=== PATIENT | male | born 1945 | race Hispanic/Latino ===

== ENCOUNTER 2021-03-17 05:09 | Inpatient (IN) | payer OTHER ==
[2021-03-17 05:59] LABS: #Eosinphils 0.5 thou/uL (0.0-0.7); #Lymphocytes 0.6 thou/uL (1.20-3.40); #Monocytes 0.9 thou/uL (0.11-0.59); %Basophils 0.2 % (0.0-1.0); %Lymphocytes 6.8 % (21.0-51.0); %Monocytes 9.8 % (0.0-10.0); %Neutrophils 78.1 % (42.0-75.0); Hemoglobin 11.7 g/dL (14.0-18.0); Mean Corpuscular HGB CONC 33.4 g/dL (32.0-36.0); Mean Corpuscular Hemoglobin 29.8 pg (27.0-31.0); Mean Platelet Volume 8.6 fL (7.4-10.4); Platelet Count 200 thou/uL (130-400); RBC Distribution Width 12.4 % (11.5-14.5); Red Blood Cell (RBC) Count 3.93 mill/uL (4.70-6.10)
[2021-03-17 06:25] LABS: ALT (SGPT) 24 U/L (8-55); AST (SGOT) 25 U/L (5-34); Albumin 3.2 g/dL (3.4-4.8); Alkaline Phosphatase 217 U/L (40-110); Anion Gap 12 mmol/L (10-20); BUN (Urea Nitrogen) 41 mg/dL (8.4-25.7); Calc. Creatinine Clearance 0 mL/min (70-130); Calcium 9.1 mg/dL (7.8-10.44); Carbon Dioxide 26 mmol/L (23-31); Chloride 99 mmol/L (98-107); Globulin 3.8 g/dL (2.4-3.5); Glucose 131 mg/dL (83-110); Potassium 3.6 mmol/L (3.5-5.1); Sodium 133 mmol/L (136-145)
[2021-03-17 06:48] LABS: CKMB 1.8 ng/mL (0-6.6)
[2021-03-17 07:38] LABS: Bacteria/HPF None Seen HPF (None Seen); Bilirubin Negative (Negative); Blood, Urine 1+ (Negative); Clarity Clear (Clear); Glucose, Urine (Dipstick) Normal (Negative); Ketone, Urine Negative (Negative); Leukocyte Negative Leu/uL (Negative); Nitrite Negative (Negative); Protein, Urine (Dipstick) 30 mg/dL (Neg-Trace); RBC/HPF 0-3 HPF (0-3); Specific Gravity, Urine 1.026 (1.002-1.036); Squamous Epithelial 0-3 HPF (0-3); Urobilinogen Normal mg/dL (Less than 2); WBC/HPF 0-3 HPF (0-3); pH, Urine 5.5 (5.0-9.0)
[2021-03-17] MEDS ORDERED: Calcium Carbonate 500 MG ChewTAB PO PRN (07:53)
[2021-03-17] MEDS ORDERED: Ondansetron PF 4 MG/2 ML Vial IVP PRN (07:53)
[2021-03-17] MEDS ORDERED: Aspirin 300 MG Suppository ONE (07:58)
[2021-03-17] MEDS: Sodium Chloride 0.9% 1,000 ML IV SCH ×3 (08:52→21:53)
[2021-03-17] MEDS: Aspirin 81 mg Enteric Coated Tablet PO SCH (08:52)
[2021-03-17 09:31] LABS: Anion Gap 13 mmol/L (10-20); Carbon Dioxide 25 mmol/L (23-31); Chloride 102 mmol/L (98-107); Potassium 3.5 mmol/L (3.5-5.1); Sodium 136 mmol/L (136-145)
[2021-03-17 09:39] LABS: Troponin I 0.255 ng/mL (< 0.028)
[2021-03-17] MEDS ORDERED: Haloperidol Lactate 5 MG/ML VIAL ONE ×2 (11:02→16:02)
[2021-03-17] MEDS: Haloperidol Lactate 5 MG/ML VIAL SLOW IVP PRN ×2 (11:18→18:29)
[2021-03-17] MEDS ORDERED: Famotidine 20 MG TAB ONE (11:40)
[2021-03-17] MEDS: Famotidine 20 MG TAB PO SCH (11:45)
[2021-03-17] MEDS ORDERED: Iopamidol-370 76% 500 ML 1 ML ONE (12:44)
[2021-03-17] MEDS ORDERED: Enoxaparin Sodium 60 MG/0.6 ML SYRINGE ONE (14:47)
[2021-03-17] MEDS: Enoxaparin Sodium 60 MG/0.6 ML SYRINGE SC SCH ×2 (14:48→21:52)
[2021-03-17 19:35] LABS: Troponin I 0.194 ng/mL (< 0.028)
[2021-03-17 21:04] LABS: SARS-CoV-2 PCR by NAA Not Detected (NotDetected)
[2021-03-17] MEDS: Atorvastatin Calcium 40 MG TAB PO SCH (21:56)
[2021-03-18] MEDS: Sodium Chloride 0.9% 1,000 ML IV SCH ×3 (03:52→21:43)
[2021-03-18 09:31] LABS: Hemoglobin 11.3 g/dL (14.0-18.0); Mean Corpuscular HGB CONC 34.9 g/dL (32.0-36.0); Mean Corpuscular Hemoglobin 31.3 pg (27.0-31.0); Mean Corpuscular Volume 89.7 fL (78.0-98.0); Mean Platelet Volume 8.5 fL (7.4-10.4); Platelet Count 196 thou/uL (130-400); RBC Distribution Width 12.6 % (11.5-14.5); Red Blood Cell (RBC) Count 3.61 mill/uL (4.70-6.10); White Blood Cell (WBC) Count 7.8 thou/uL (4.8-10.8)
[2021-03-18] MEDS: Enoxaparin Sodium 60 MG/0.6 ML SYRINGE SC SCH ×2 (09:43→21:11)
[2021-03-18] MEDS: Famotidine 20 MG TAB PO SCH (09:43)
[2021-03-18] MEDS: Aspirin 81 mg Enteric Coated Tablet PO SCH (09:43)
[2021-03-18 09:50] LABS: Anion Gap 12 mmol/L (10-20); BUN (Urea Nitrogen) 29 mg/dL (8.4-25.7); Calc. Creatinine Clearance 34 mL/min (70-130); Calcium 8.8 mg/dL (7.8-10.44); Carbon Dioxide 23 mmol/L (23-31); Chloride 107 mmol/L (98-107); Glucose 106 mg/dL (83-110); Potassium 3.7 mmol/L (3.5-5.1); Sodium 138 mmol/L (136-145)
[2021-03-18] MEDS: Acetaminophen 325 MG TAB PO PRN (13:14)
[2021-03-18] MEDS: Atorvastatin Calcium 40 MG TAB PO SCH (21:10)
[2021-03-19] MEDS: Sodium Chloride 0.9% 1,000 ML IV SCH ×3 (02:33→17:07)
[2021-03-19 05:02] LABS: Hemoglobin 10.8 g/dL (14.0-18.0); Mean Corpuscular HGB CONC 35.1 g/dL (32.0-36.0); Mean Corpuscular Hemoglobin 31.3 pg (27.0-31.0); Mean Corpuscular Volume 89.1 fL (78.0-98.0); Mean Platelet Volume 8.2 fL (7.4-10.4); Platelet Count 208 thou/uL (130-400); RBC Distribution Width 12.4 % (11.5-14.5); Red Blood Cell (RBC) Count 3.45 mill/uL (4.70-6.10)
[2021-03-19 05:19] LABS: Anion Gap 11 mmol/L (10-20); BUN (Urea Nitrogen) 17 mg/dL (8.4-25.7); Calc. Creatinine Clearance 48 mL/min (70-130); Calcium 8.5 mg/dL (7.8-10.44); Carbon Dioxide 21 mmol/L (23-31); Chloride 108 mmol/L (98-107); Glucose 107 mg/dL (83-110); Potassium 3.3 mmol/L (3.5-5.1); Sodium 137 mmol/L (136-145)
[2021-03-19] MEDS ORDERED: Potassium Chloride 20 MEQ TAB PO SCH (08:30)
[2021-03-19] MEDS ORDERED: Clopidogrel Bisulfate 75 MG TAB PO SCH (09:00)
[2021-03-19] MEDS: Famotidine 20 MG TAB PO SCH (09:07)
[2021-03-19] MEDS: Aspirin 81 mg Enteric Coated Tablet PO SCH (09:07)
[2021-03-19] MEDS: Senokot S 8.6-50 MG TAB PO SCH ×2 (09:25→21:03)
[2021-03-19] MEDS ORDERED: Losartan 25 MG TAB PO SCH (12:45)
[2021-03-19] MEDS ORDERED: Amlodipine 5 MG TAB PO SCH (12:45)
[2021-03-19] MEDS ORDERED: Sodium Chloride 0.9% 1,000 ML IV SCH (14:27)
[2021-03-19] MEDS ORDERED: Megestrol Acetate 40 MG TAB PO SCH (15:00)
[2021-03-19] MEDS: Acetaminophen 325 MG TAB PO PRN (18:03)
[2021-03-19] MEDS: Atorvastatin Calcium 40 MG TAB PO SCH (21:03)
[2021-03-19] MEDS: Carvedilol 3.125 MG TAB PO SCH (21:03)
[2021-03-20] MEDS: Lorazepam 2 MG/ML VIAL SLOW IVP PRN ×2 (03:50→20:59)
[2021-03-20 08:45] LABS: Hemoglobin 11.4 g/dL (14.0-18.0); Mean Corpuscular Hemoglobin 30.2 pg (27.0-31.0); Mean Corpuscular Volume 88.8 fL (78.0-98.0); Mean Platelet Volume 8.4 fL (7.4-10.4); Platelet Count 237 thou/uL (130-400); RBC Distribution Width 12.2 % (11.5-14.5); Red Blood Cell (RBC) Count 3.77 mill/uL (4.70-6.10); White Blood Cell (WBC) Count 8.2 thou/uL (4.8-10.8)
[2021-03-20] MEDS ORDERED: Losartan 25 MG TAB PO SCH (09:00)
[2021-03-20] MEDS ORDERED: Enoxaparin Sodium 100 MG/ML SYRINGE SC SCH (09:00)
[2021-03-20 09:04] LABS: Anion Gap 13 mmol/L (10-20); BUN (Urea Nitrogen) 12 mg/dL (8.4-25.7); Calc. Creatinine Clearance 54 mL/min (70-130); Carbon Dioxide 23 mmol/L (23-31); Chloride 106 mmol/L (98-107); Glucose 119 mg/dL (83-110); Potassium 3.2 mmol/L (3.5-5.1); Sodium 139 mmol/L (136-145)
[2021-03-20] MEDS: Carvedilol 3.125 MG TAB PO SCH (09:23)
[2021-03-20] MEDS: Amlodipine 5 MG TAB PO SCH (09:23)
[2021-03-20] MEDS: Aspirin 81 mg Enteric Coated Tablet PO SCH (09:23)
[2021-03-20] MEDS: Famotidine 20 MG TAB PO SCH (09:23)
[2021-03-20] MEDS: Senokot S 8.6-50 MG TAB PO SCH ×2 (09:24→20:01)
[2021-03-20] MEDS: Megestrol Acetate 40 MG TAB PO SCH (09:24)
[2021-03-20] MEDS: Sodium Chloride 0.9% 1,000 ML IV SCH (18:17)
[2021-03-20] MEDS: Loratadine 10 MG TAB PO PRN (20:01)
[2021-03-20] MEDS: Atorvastatin Calcium 40 MG TAB PO SCH (20:01)
[2021-03-20] MEDS: Haloperidol Lactate 5 MG/ML VIAL SLOW IVP PRN (22:00)
[2021-03-21 07:59] LABS: Hemoglobin 11.3 g/dL (14.0-18.0); Platelet Count 245 thou/uL (130-400)
[2021-03-21 08:06] LABS: Chloride 108 mmol/L (98-107); Potassium 3.3 mmol/L (3.5-5.1); Sodium 138 mmol/L (136-145)
[2021-03-21 08:07] LABS: Anion Gap 11 mmol/L (10-20); BUN (Urea Nitrogen) 10 mg/dL (8.4-25.7); Calc. Creatinine Clearance 64 mL/min (70-130); Calcium 8.5 mg/dL (7.8-10.44); Carbon Dioxide 22 mmol/L (23-31); Glucose 94 mg/dL (83-110)
[2021-03-21] MEDS ORDERED: Potassium Chloride 20 MEQ TAB PO SCH (09:30)
[2021-03-21] MEDS: Senokot S 8.6-50 MG TAB PO SCH ×2 (09:39→20:24)
[2021-03-21] MEDS: Aspirin 81 mg Enteric Coated Tablet PO SCH (09:39)
[2021-03-21] MEDS: Famotidine 20 MG TAB PO SCH (09:39)
[2021-03-21] MEDS: Carvedilol 6.25 MG TAB PO SCH ×2 (09:39→16:44)
[2021-03-21] MEDS: Amlodipine 5 MG TAB PO SCH (09:40)
[2021-03-21] MEDS: Megestrol Acetate 40 MG TAB PO SCH (09:40)
[2021-03-21] MEDS: Acetaminophen 325 MG TAB PO PRN (16:44)
[2021-03-21] MEDS: Loratadine 10 MG TAB PO PRN (20:24)
[2021-03-21] MEDS: Atorvastatin Calcium 40 MG TAB PO SCH (20:24)
[2021-03-22] MEDS: Acetaminophen 325 MG TAB PO PRN (05:48)
[2021-03-22] MEDS: Aspirin 81 mg Enteric Coated Tablet PO SCH (08:06)
[2021-03-22] MEDS: Amlodipine 5 MG TAB PO SCH (08:07)
[2021-03-22] MEDS: Megestrol Acetate 40 MG TAB PO SCH (08:08)
[2021-03-22] MEDS: Famotidine 20 MG TAB PO SCH (08:10)
[2021-03-22] MEDS: Senokot S 8.6-50 MG TAB PO SCH ×2 (08:10→20:40)
[2021-03-22] MEDS: Carvedilol 6.25 MG TAB PO SCH ×2 (08:11→17:36)
[2021-03-22 09:31] LABS: Potassium 3.4 mmol/L (3.5-5.1)
[2021-03-22] MEDS ORDERED: PROPOFOL 200 MG/20 ML VIAL ONE (09:58)
[2021-03-22] MEDS: Acetaminophen 325 MG TAB PO SCH ×3 (11:31→23:45)
[2021-03-22] MEDS: Triple Antibiotic Oint 1 GM Packet TOP PRN ×2 (17:52→20:44)
[2021-03-22] MEDS: Loratadine 10 MG TAB PO PRN (20:40)
[2021-03-22] MEDS: Atorvastatin Calcium 40 MG TAB PO SCH (20:40)
[2021-03-22] MEDS: Enoxaparin Sodium 100 MG/ML SYRINGE SC SCH (21:07)
[2021-03-23] MEDS: Acetaminophen 325 MG TAB PO SCH ×2 (06:49→12:10)
[2021-03-23] MEDS: Enoxaparin Sodium 100 MG/ML SYRINGE SC SCH (09:04)
[2021-03-23] MEDS: Amlodipine 5 MG TAB PO SCH (09:05)
[2021-03-23] MEDS: Carvedilol 6.25 MG TAB PO SCH ×2 (09:05→16:53)
[2021-03-23] MEDS: Aspirin 81 mg Enteric Coated Tablet PO SCH (09:05)
[2021-03-23] MEDS: Megestrol Acetate 40 MG TAB PO SCH (09:05)
[2021-03-23] MEDS: Famotidine 20 MG TAB PO SCH (09:05)
[2021-03-23] MEDS: Senokot S 8.6-50 MG TAB PO SCH (09:05)
[2021-03-23] MEDS: Triple Antibiotic Oint 1 GM Packet TOP PRN (09:07)
[2021-03-23 14:16] VITALS: BMI 25.7
[2021-03-23 15:42] VITALS: BP 145/78; TEMP 97.4
[2021-03-23] MEDS ORDERED: Pancrelipase DR 12,000 1 CAP FS PRN (16:00)
[2021-03-23] MEDS ORDERED: Sodium Bicarbonate Tab 325 MG TAB PER TUBE PRN (16:00)
== END 2021-03-23 17:05 | disposition home or self-care (01) | DRG 64 ==
LOC: ERS 05:09 → SUATTDRO 05:09 → ERHOLD 07:25 → OBSVTOIN 07:53 → 2SE 18:52
PROVIDERS: ADMIT Family Medicine; ATTEND Internal Medicine
PROC: 0DH63UZ Insertion of Feeding Device into Stomach, Percutaneous Approach (ICD-10-PCS; principal; 2021-03-22)
DX: I63.9 Cerebral infarction, unspecified (principal); G93.41 Metabolic encephalopathy; I21.A1 Myocardial infarction type 2; C34.31 Malignant neoplasm of lower lobe, right bronchus or lung; Z20.822 Contact with and (suspected) exposure to COVID-19; C77.0 Secondary and unspecified malignant neoplasm of lymph nodes of head, face and neck; C79.51 Secondary malignant neoplasm of bone; N17.9 Acute kidney failure, unspecified; E87.2 Acidosis; E44.0 Moderate protein-calorie malnutrition; R04.2 Hemoptysis; E78.5 Hyperlipidemia, unspecified; I12.9 Hypertensive chronic kidney disease with stage 1 through stage 4 chronic kidney disease, or unspecified chronic kidney disease; G47.30 Sleep apnea, unspecified; I35.0 Nonrheumatic aortic (valve) stenosis; I48.0 Paroxysmal atrial fibrillation; E87.6 Hypokalemia; I25.10 Atherosclerotic heart disease of native coronary artery without angina pectoris; I44.7 Left bundle-branch block, unspecified; D63.1 Anemia in chronic kidney disease; I08.1 Rheumatic disorders of both mitral and tricuspid valves; N14.1 Nephropathy induced by other drugs, medicaments and biological substances; T50.8X5A Adverse effect of diagnostic agents, initial encounter; N18.30 Chronic kidney disease, stage 3 unspecified; E87.5 Hyperkalemia; E86.0 Dehydration; R29.718 NIHSS score 18; I69.951 Hemiplegia and hemiparesis following unspecified cerebrovascular disease affecting right dominant side; Z95.5 Presence of coronary angioplasty implant and graft; Z87.891 Personal history of nicotine dependence; Z79.899 Other long term (current) drug therapy; I69.920 Aphasia following unspecified cerebrovascular disease; Z68.25 Body mass index [BMI] 25.0-25.9, adult
CPT/HCPCS: 36415; 70450; 70496; 70498; 70551; 71045; 71250; 74018; 76770; 80048; 80053; 81003; 81015; 82553; 84132; 84484; 85014; 85018; 85025; 85027; 85049; 87635; 93005; 93306; J0690; J1630; J1650; J2060; J2704; Q9967; S0179; U0003; U0005

== ENCOUNTER 2021-04-09 18:17 | Inpatient (IN) | payer OTHER ==
[2021-04-09 18:49] LABS: #Eosinphils 0.5 thou/uL (0.0-0.7); #Lymphocytes 1.2 thou/uL (1.20-3.40); #Neutrophils 11.2 thou/uL (1.40-6.50); %Basophils 0.2 % (0.0-1.0); %Eosinophils 3.6 % (0.0-10.0); %Lymphocytes 8.7 % (21.0-51.0); %Monocytes 7.3 % (0.0-10.0); %Neutrophils 80.1 % (42.0-75.0); Hemoglobin 11.3 g/dL (14.0-18.0); Mean Corpuscular HGB CONC 34.8 g/dL (32.0-36.0); Mean Corpuscular Hemoglobin 30.8 pg (27.0-31.0); Mean Corpuscular Volume 88.5 fL (78.0-98.0); Mean Platelet Volume 8.3 fL (7.4-10.4); Platelet Count 185 thou/uL (130-400); RBC Distribution Width 12.8 % (11.5-14.5); Red Blood Cell (RBC) Count 3.65 mill/uL (4.70-6.10)
[2021-04-09 19:09] LABS: ALT (SGPT) 201 U/L (8-55); AST (SGOT) 149 U/L (5-34); Albumin 3.4 g/dL (3.4-4.8); Alkaline Phosphatase 315 U/L (40-110); Anion Gap 13 mmol/L (10-20); BUN (Urea Nitrogen) 13 mg/dL (8.4-25.7); Bilirubin, Total 1.2 mg/dL (0.2-1.2); Calc. Creatinine Clearance 0 mL/min (70-130); Calcium 9.1 mg/dL (7.8-10.44); Carbon Dioxide 23 mmol/L (23-31); Chloride 103 mmol/L (98-107); Glucose 110 mg/dL (83-110); Protein, Total 7.4 g/dL (5.8-8.1); Sodium 135 mmol/L (136-145)
[2021-04-09 19:42] LABS: CKMB 1.7 ng/mL (0-6.6)
[2021-04-09] MEDS ORDERED: Aspirin 325 MG TAB ONE (20:18)
[2021-04-09 21:23] LABS: Bacteria/HPF None Seen HPF (None Seen); Bilirubin Negative (Negative); Blood, Urine 1+ (Negative); Clarity Clear (Clear); Glucose, Urine (Dipstick) Normal (Negative); Ketone, Urine Negative (Negative); Leukocyte Negative Leu/uL (Negative); Mucous/LPF Rare LPF (<2+); Nitrite Negative (Negative); Protein, Urine (Dipstick) 600 mg/dL (Neg-Trace); Renal Epithelial 0-3 HPF (None Seen); Specific Gravity, Urine 1.026 (1.002-1.036); Squamous Epithelial None Seen HPF (0-3); Urobilinogen 12 mg/dL (Less than 2); WBC/HPF 0-3 HPF (0-3)
[2021-04-09] MEDS ORDERED: Ondansetron PF 4 MG/2 ML Vial IVP PRN (22:00)
[2021-04-10] MEDS: Piperacillin/Tazobactam 3.375 GM in Sodium Chloride 0.9% 100 ML IVPB SCH ×5 (00:12→21:26)
[2021-04-10] MEDS ORDERED: Polyethylene Glycol 3350 17 GM Packet PO PRN (00:21)
[2021-04-10] MEDS ORDERED: Enoxaparin Sodium 80 MG/0.8 ML SYRINGE SC SCH (00:30)
[2021-04-10] MEDS ORDERED: Vancomycin 1.5 GRAM/300 ML BAG 1.5 GM in Premix Bag 1 BAG IVPB SCH (01:00)
[2021-04-10 01:15] LABS: SARS-CoV-2 NAA Rapid Test Not Detected (NotDetected)
[2021-04-10 01:27] LABS: Critical Call Chem Troponin I RESULT DECREASING; Troponin I 0.441 ng/mL (< 0.028)
[2021-04-10] MEDS: guaiFENesin ER 600 MG TAB PO PRN ×3 (02:28→21:24)
[2021-04-10 05:06] LABS: #Eosinphils 0.5 thou/uL (0.0-0.7); #Lymphocytes 1.4 thou/uL (1.20-3.40); #Neutrophils 10.8 thou/uL (1.40-6.50); %Basophils 0.2 % (0.0-1.0); %Eosinophils 3.4 % (0.0-10.0); %Monocytes 7.1 % (0.0-10.0); %Neutrophils 79.3 % (42.0-75.0); Hemoglobin 11.4 g/dL (14.0-18.0); Mean Corpuscular HGB CONC 34.2 g/dL (32.0-36.0); Mean Corpuscular Hemoglobin 30.6 pg (27.0-31.0); Mean Corpuscular Volume 89.5 fL (78.0-98.0); Platelet Count 189 thou/uL (130-400); Red Blood Cell (RBC) Count 3.73 mill/uL (4.70-6.10); White Blood Cell (WBC) Count 13.7 thou/uL (4.8-10.8)
[2021-04-10 05:28] LABS: Anion Gap 15 mmol/L (10-20); BUN (Urea Nitrogen) 12 mg/dL (8.4-25.7); Calc. Creatinine Clearance 80 mL/min (70-130); Carbon Dioxide 22 mmol/L (23-31); Chloride 102 mmol/L (98-107); Glucose 123 mg/dL (83-110); Potassium 3.7 mmol/L (3.5-5.1); Sodium 135 mmol/L (136-145)
[2021-04-10 05:29] LABS: ALT (SGPT) 167 U/L (8-55); AST (SGOT) 92 U/L (5-34); Albumin 3.3 g/dL (3.4-4.8); Alkaline Phosphatase 296 U/L (40-110); Bilirubin, Direct 1.1 mg/dL (0.1-0.3); Bilirubin, Total 1.8 mg/dL (0.2-1.2); Protein, Total 7.2 g/dL (5.8-8.1)
[2021-04-10] MEDS: Famotidine 20 MG TAB PO SCH (08:24)
[2021-04-10] MEDS: Sodium Chloride 0.9% 1,000 ML IV SCH (11:14)
[2021-04-10] MEDS: Vancomycin 1 GM in Premix Bag 1 BAG IVPB SCH (13:08)
[2021-04-10 17:48] LABS: Hemoglobin 11.4 g/dL (14.0-18.0); Platelet Count 191 thou/uL (130-400)
[2021-04-10] MEDS ORDERED: Atorvastatin Calcium 40 MG TAB PO SCH (21:00)
[2021-04-10] MEDS ORDERED: Amlodipine 5 MG TAB PO SCH (21:00)
[2021-04-10] MEDS: Atorvastatin Calcium 40 MG TAB PO SCH (21:23)
[2021-04-10] MEDS: Senokot S 8.6-50 MG TAB PO SCH (21:24)
[2021-04-10] MEDS: Apixaban 5 MG TAB PO SCH (21:24)
[2021-04-10] MEDS ORDERED: Melatonin 3 MG TAB PO PRN (22:36)
[2021-04-11] MEDS: Sodium Chloride 0.9% 1,000 ML IV SCH ×2 (01:31→13:48)
[2021-04-11] MEDS: Vancomycin 1 GM in Premix Bag 1 BAG IVPB SCH ×2 (02:18→13:48)
[2021-04-11] MEDS: Piperacillin/Tazobactam 3.375 GM in Sodium Chloride 0.9% 100 ML IVPB SCH ×2 (02:18→09:02)
[2021-04-11] MEDS: Acetaminophen 325 MG TAB PO PRN ×2 (03:50→20:37)
[2021-04-11 04:47] LABS: #Eosinphils 0.3 thou/uL (0.0-0.7); #Lymphocytes 0.7 thou/uL (1.20-3.40); #Monocytes 0.8 thou/uL (0.11-0.59); #Neutrophils 9.2 thou/uL (1.40-6.50); %Basophils 0.3 % (0.0-1.0); %Eosinophils 2.7 % (0.0-10.0); %Lymphocytes 6.2 % (21.0-51.0); %Monocytes 7.5 % (0.0-10.0); %Neutrophils 83.3 % (42.0-75.0); Hemoglobin 10.5 g/dL (14.0-18.0); Mean Corpuscular HGB CONC 34.4 g/dL (32.0-36.0); Mean Corpuscular Hemoglobin 30.5 pg (27.0-31.0); Mean Corpuscular Volume 88.7 fL (78.0-98.0); Mean Platelet Volume 8.7 fL (7.4-10.4); Platelet Count 168 thou/uL (130-400); RBC Distribution Width 12.8 % (11.5-14.5); Red Blood Cell (RBC) Count 3.43 mill/uL (4.70-6.10)
[2021-04-11 05:22] LABS: Anion Gap 15 mmol/L (10-20); BUN (Urea Nitrogen) 19 mg/dL (8.4-25.7); Calc. Creatinine Clearance 72 mL/min (70-130); Calcium 8.4 mg/dL (7.8-10.44); Carbon Dioxide 22 mmol/L (23-31); Chloride 102 mmol/L (98-107); Glucose 151 mg/dL (83-110); Potassium 3.7 mmol/L (3.5-5.1); Sodium 135 mmol/L (136-145)
[2021-04-11 05:25] LABS: ALT (SGPT) 204 U/L (8-55); AST (SGOT) 146 U/L (5-34); Alkaline Phosphatase 324 U/L (40-110); Anion Gap 14 mmol/L (10-20); BUN (Urea Nitrogen) 19 mg/dL (8.4-25.7); Bilirubin, Direct 0.8 mg/dL (0.1-0.3); Bilirubin, Total 1.1 mg/dL (0.2-1.2); Calc. Creatinine Clearance 70 mL/min (70-130); Calcium 8.4 mg/dL (7.8-10.44); Carbon Dioxide 21 mmol/L (23-31); Chloride 102 mmol/L (98-107); Globulin 3.5 g/dL (2.4-3.5); Glucose 153 mg/dL (83-110); Potassium 3.6 mmol/L (3.5-5.1); Protein, Total 6.5 g/dL (5.8-8.1); Sodium 133 mmol/L (136-145)
[2021-04-11] MEDS: Megestrol Acetate 40 MG TAB PO SCH (09:03)
[2021-04-11] MEDS: Senokot S 8.6-50 MG TAB PO SCH ×2 (09:03→20:25)
[2021-04-11] MEDS: Famotidine 20 MG TAB PO SCH (09:03)
[2021-04-11] MEDS: Apixaban 5 MG TAB PO SCH (09:03)
[2021-04-11] MEDS: Aspirin 81 mg Enteric Coated Tablet PO SCH (09:06)
[2021-04-11] MEDS: Lorazepam 2 MG/ML VIAL SLOW IVP PRN ×2 (10:11→21:50)
[2021-04-11] MEDS ORDERED: Azithromycin 200 MG/5 ML Oral Suspension PO SCH (15:15)
[2021-04-11 16:42] LABS: INR-International Normal Ratio 1.9; Prothrombin Time 22.3 sec (12.0-14.7)
[2021-04-11] MEDS: Cefdinir 300 MG CAP PO SCH (20:26)
[2021-04-11] MEDS: Atorvastatin Calcium 40 MG TAB PO SCH (20:27)
[2021-04-11] MEDS ORDERED: Apixaban 2.5 MG TAB PO SCH (21:00)
[2021-04-11] MEDS ORDERED: Apixaban 5 MG TAB PO SCH (21:00)
[2021-04-11] MEDS ORDERED: traZODone HCl 50 MG TAB PO SCH (21:00)
[2021-04-11] MEDS: guaiFENesin ER 600 MG TAB PO PRN (21:50)
[2021-04-11] MEDS ORDERED: Lorazepam 0.5 MG TAB PO PRN (22:36)
[2021-04-12] MEDS ORDERED: Furosemide 40 MG/4 ML VIAL ONE (01:59)
[2021-04-12] MEDS ORDERED: Furosemide 40 MG/4 ML VIAL SLOW IVP SCH ×2 (02:00→08:45)
[2021-04-12 02:01] LABS: #Basophils 0.1 thou/uL (0.0-0.2); #Eosinphils 0.7 thou/uL (0.0-0.7); #Lymphocytes 2.4 thou/uL (1.20-3.40); #Monocytes 1.4 thou/uL (0.11-0.59); #Neutrophils 14.4 thou/uL (1.40-6.50); %Basophils 0.3 % (0.0-1.0); %Eosinophils 3.5 % (0.0-10.0); %Lymphocytes 12.7 % (21.0-51.0); %Monocytes 7.4 % (0.0-10.0); %Neutrophils 76.1 % (42.0-75.0); Actual Bicarbonate (HCO3a) 23.6 mEq/L (22-28); Base Excess (BEa) -1.3 mEq/L (-2.0 to +3.0); CO2 Tension 39.9 mmHg (35.0-45.0); Calcium, Ionized (arterial) 1.18 mmol/L (1.12-1.30); Carboxyhemoglobin (COHb) 0.3 gm% (0.0-3.0); Hemoglobin 11.2 g/dL (14.0-18.0); Hemoglobin (Hb) 11.5 g/dL (14.0-18.0); Mean Corpuscular HGB CONC 34.5 g/dL (32.0-36.0); Mean Corpuscular Hemoglobin 30.6 pg (27.0-31.0); Mean Corpuscular Volume 88.7 fL (78.0-98.0); Mean Platelet Volume 8.7 fL (7.4-10.4); O2 Tension (PaO2), arterial 70.7 mmHg (> 70.0); Platelet Count 193 thou/uL (130-400); Potassium - ABG Lab 3.47 mmol/L (3.70-5.30); Red Blood Cell (RBC) Count 3.66 mill/uL (4.70-6.10); White Blood Cell (WBC) Count 18.9 thou/uL (4.8-10.8); pH, Arterial 7.39 (7.35-7.45)
[2021-04-12 02:02] LABS: ALV-art Gradient 136.105 mmHg (0-20); Puncture Site LRA
[2021-04-12] MEDS ORDERED: Potassium Bicarbonate/Cit Ac 20 MEQ TAB PER TUBE SCH (02:15)
[2021-04-12 02:21] LABS: ALT (SGPT) 165 U/L (8-55); AST (SGOT) 83 U/L (5-34); Albumin 3.2 g/dL (3.4-4.8); Alkaline Phosphatase 334 U/L (40-110); Anion Gap 16 mmol/L (10-20); BUN (Urea Nitrogen) 19 mg/dL (8.4-25.7); Bilirubin, Total 1.1 mg/dL (0.2-1.2); Calc. Creatinine Clearance 75 mL/min (70-130); Calcium 8.6 mg/dL (7.8-10.44); Carbon Dioxide 18 mmol/L (23-31); Chloride 103 mmol/L (98-107); Globulin 3.9 g/dL (2.4-3.5); Glucose 171 mg/dL (83-110); Magnesium 1.9 mg/dL (1.6-2.6); Potassium 3.5 mmol/L (3.5-5.1); Protein, Total 7.1 g/dL (5.8-8.1); Sodium 133 mmol/L (136-145)
[2021-04-12 02:39] LABS: Critical Call Chem Troponin I RESULT DECREASING; Troponin I 0.353 ng/mL (< 0.028)
[2021-04-12] MEDS ORDERED: Electrolyte Replacement Protocol 1 EACH FS PRN (03:30)
[2021-04-12] MEDS ORDERED: Phytonadione 10 MG in Sodium Chloride 0.9% 50 ML IVPB SCH (09:30)
[2021-04-12] MEDS ORDERED: cefTRIAXone\\ROCEPHIN 1 GM in Sodium Chloride 0.9% 100 ML IVPB SCH (09:30)
[2021-04-12] MEDS: Famotidine 20 MG TAB PO SCH (09:34)
[2021-04-12] MEDS: Aspirin 81 mg Enteric Coated Tablet PO SCH (09:34)
[2021-04-12] MEDS: Senokot S 8.6-50 MG TAB PO SCH ×2 (09:35→20:26)
[2021-04-12] MEDS: Megestrol Acetate 40 MG TAB PO SCH (09:36)
[2021-04-12] MEDS: Azithromycin 200 MG/5 ML Oral Suspension PO SCH (09:50)
[2021-04-12] MEDS: cefTRIAXone\\ROCEPHIN 2 GM in Sodium Chloride 0.9% 100 ML IVPB SCH (09:51)
[2021-04-12 10:55] LABS: CKMB 3.6 ng/mL (0-6.6)
[2021-04-12] MEDS: Cefdinir 300 MG CAP PO SCH (11:03)
[2021-04-12] MEDS ORDERED: Magnesium 2 GM/50 ML 2 GM in Premix Bag 1 BAG IVPB SCH (11:45)
[2021-04-12] MEDS: Digoxin 0.25 MG TAB PO SCH ×2 (12:32→17:36)
[2021-04-12] MEDS: metroNIDAZOLE 500 MG in Premix Bag 1 BAG IVPB SCH ×2 (15:28→21:41)
[2021-04-12] MEDS: Furosemide 40 MG/4 ML VIAL SLOW IVP SCH (15:28)
[2021-04-12] MEDS: methylPREDNISolone Sod Succ 40 MG VIAL IVP SCH (17:36)
[2021-04-12] MEDS: Atorvastatin Calcium 40 MG TAB PO SCH (20:26)
[2021-04-12] MEDS: traZODone HCl 50 MG TAB PO SCH (20:27)
[2021-04-12] MEDS: Apixaban 5 MG TAB PO SCH (20:27)
[2021-04-13] MEDS: methylPREDNISolone Sod Succ 40 MG VIAL IVP SCH ×5 (00:08→23:50)
[2021-04-13] MEDS: Digoxin 0.25 MG TAB PO SCH (00:08)
[2021-04-13 03:31] LABS: #Lymphocytes 0.3 thou/uL (1.20-3.40); #Monocytes 0.3 thou/uL (0.11-0.59); #Neutrophils 10.1 thou/uL (1.40-6.50); %Basophils 0.1 % (0.0-1.0); %Eosinophils 0.2 % (0.0-10.0); %Lymphocytes 3.1 % (21.0-51.0); %Monocytes 2.8 % (0.0-10.0); %Neutrophils 93.7 % (42.0-75.0); Hemoglobin 9.6 g/dL (14.0-18.0); Mean Corpuscular HGB CONC 34.3 g/dL (32.0-36.0); Mean Corpuscular Hemoglobin 30.4 pg (27.0-31.0); Mean Corpuscular Volume 88.5 fL (78.0-98.0); Mean Platelet Volume 9.1 fL (7.4-10.4); Platelet Count 169 thou/uL (130-400); RBC Distribution Width 12.9 % (11.5-14.5); Red Blood Cell (RBC) Count 3.15 mill/uL (4.70-6.10); White Blood Cell (WBC) Count 10.8 thou/uL (4.8-10.8)
[2021-04-13 03:39] LABS: INR-International Normal Ratio 1.9; Prothrombin Time 22.1 sec (12.0-14.7)
[2021-04-13 03:48] LABS: ALT (SGPT) 150 U/L (8-55); AST (SGOT) 106 U/L (5-34); Albumin 2.8 g/dL (3.4-4.8); Alkaline Phosphatase 309 U/L (40-110); Anion Gap 10 mmol/L (10-20); BUN (Urea Nitrogen) 22 mg/dL (8.4-25.7); Bilirubin, Direct 0.5 mg/dL (0.1-0.3); Bilirubin, Total 0.8 mg/dL (0.2-1.2); Calc. Creatinine Clearance 72 mL/min (70-130); Calcium 8.5 mg/dL (7.8-10.44); Carbon Dioxide 27 mmol/L (23-31); Chloride 102 mmol/L (98-107); Glucose 173 mg/dL (83-110); Magnesium 2.3 mg/dL (1.6-2.6); Protein, Total 6.3 g/dL (5.8-8.1); Sodium 135 mmol/L (136-145)
[2021-04-13] MEDS: metroNIDAZOLE 500 MG in Premix Bag 1 BAG IVPB SCH ×3 (06:09→22:40)
[2021-04-13] MEDS: Furosemide 40 MG/4 ML VIAL SLOW IVP SCH ×2 (06:10→14:47)
[2021-04-13] MEDS: Megestrol Acetate 40 MG TAB PO SCH (07:53)
[2021-04-13] MEDS: Aspirin 81 mg Enteric Coated Tablet PO SCH (07:55)
[2021-04-13] MEDS: Famotidine 20 MG TAB PO SCH (07:55)
[2021-04-13] MEDS: Apixaban 5 MG TAB PO SCH ×2 (07:55→21:32)
[2021-04-13] MEDS: Azithromycin 200 MG/5 ML Oral Suspension PO SCH (07:55)
[2021-04-13] MEDS: Senokot S 8.6-50 MG TAB PO SCH ×2 (07:56→21:32)
[2021-04-13 09:47] LABS: Hemoglobin 10.1 g/dL (14.0-18.0); Platelet Count 174 thou/uL (130-400)
[2021-04-13] MEDS: cefTRIAXone\\ROCEPHIN 2 GM in Sodium Chloride 0.9% 100 ML IVPB SCH (11:00)
[2021-04-13 13:40] VITALS: BMI 25.7
[2021-04-13] MEDS: traZODone HCl 50 MG TAB PO SCH (21:32)
[2021-04-13] MEDS: Atorvastatin Calcium 40 MG TAB PO SCH (21:32)
[2021-04-14] MEDS: Acetaminophen 325 MG TAB PO PRN ×2 (03:55→10:51)
[2021-04-14 05:10] LABS: INR-International Normal Ratio 2.3; Prothrombin Time 25.4 sec (12.0-14.7)
[2021-04-14 05:25] LABS: ALT (SGPT) 148 U/L (8-55); AST (SGOT) 58 U/L (5-34); Albumin 3.4 g/dL (3.4-4.8); Alkaline Phosphatase 338 U/L (40-110); Anion Gap 14 mmol/L (10-20); BUN (Urea Nitrogen) 32 mg/dL (8.4-25.7); Bilirubin, Direct 0.5 mg/dL (0.1-0.3); Bilirubin, Total 0.8 mg/dL (0.2-1.2); Calc. Creatinine Clearance 66 mL/min (70-130); Calcium 9.3 mg/dL (7.8-10.44); Carbon Dioxide 27 mmol/L (23-31); Chloride 101 mmol/L (98-107); Glucose 197 mg/dL (83-110); Magnesium 2.4 mg/dL (1.6-2.6); Potassium 4.5 mmol/L (3.5-5.1); Protein, Total 7.4 g/dL (5.8-8.1); Sodium 137 mmol/L (136-145)
[2021-04-14 05:37] LABS: Band 3 % (5-11); Lymphocytes 1 % (21-51); MDiff Complete? YES; Mean Corpuscular HGB CONC 33.4 g/dL (32.0-36.0); Mean Corpuscular Hemoglobin 29.8 pg (27.0-31.0); Mean Corpuscular Volume 89.2 fL (78.0-98.0); Mean Platelet Volume 8.8 fL (7.4-10.4); Monocytes 6 % (0-10); Neutrophil 90 % (42-75); Platelet Count 253 thou/uL (130-400); RBC Distribution Width 13.3 % (11.5-14.5); Red Blood Cell (RBC) Count 3.68 mill/uL (4.70-6.10); White Blood Cell (WBC) Count 22.7 thou/uL (4.8-10.8)
[2021-04-14] MEDS: Furosemide 40 MG/4 ML VIAL SLOW IVP SCH ×2 (06:53→14:09)
[2021-04-14] MEDS: methylPREDNISolone Sod Succ 40 MG VIAL IVP SCH ×2 (06:54→13:40)
[2021-04-14] MEDS: metroNIDAZOLE 500 MG in Premix Bag 1 BAG IVPB SCH ×2 (06:54→14:15)
[2021-04-14] MEDS: Lorazepam 2 MG/ML VIAL SLOW IVP PRN ×2 (06:59→11:22)
[2021-04-14] MEDS: Famotidine 20 MG TAB PO SCH (09:46)
[2021-04-14] MEDS: Senokot S 8.6-50 MG TAB PO SCH ×2 (09:46→20:46)
[2021-04-14] MEDS: Aspirin 81 mg Enteric Coated Tablet PO SCH (09:46)
[2021-04-14] MEDS: Apixaban 5 MG TAB PO SCH ×2 (09:46→20:44)
[2021-04-14] MEDS: Megestrol Acetate 40 MG TAB PO SCH (09:46)
[2021-04-14] MEDS: cefTRIAXone\\ROCEPHIN 2 GM in Sodium Chloride 0.9% 100 ML IVPB SCH (10:42)
[2021-04-14] MEDS ORDERED: Haloperidol Lactate 5 MG/ML VIAL SLOW IVP PRN (12:40)
[2021-04-14] MEDS ORDERED: Haloperidol Lactate 5 MG/ML VIAL SLOW IVP SCH (18:00)
[2021-04-14] MEDS: Atorvastatin Calcium 40 MG TAB PO SCH (20:44)
[2021-04-14] MEDS: traZODone HCl 50 MG TAB PO SCH (20:47)
[2021-04-14] MEDS ORDERED: Mirtazapine 15 MG TAB PO SCH (21:00)
[2021-04-14] MEDS ORDERED: Furosemide 40 MG/4 ML VIAL SLOW IVP SCH (22:45)
[2021-04-15] MEDS: metroNIDAZOLE 500 MG in Premix Bag 1 BAG IVPB SCH (00:15)
[2021-04-15 05:08] LABS: #Eosinphils 0.6 thou/uL (0.0-0.7); #Lymphocytes 1.6 thou/uL (1.20-3.40); #Monocytes 1.3 thou/uL (0.11-0.59); #Neutrophils 17.9 thou/uL (1.40-6.50); %Eosinophils 2.6 % (0.0-10.0); %Lymphocytes 7.6 % (21.0-51.0); %Neutrophils 83.8 % (42.0-75.0); Hemoglobin 11.6 g/dL (14.0-18.0); Mean Corpuscular HGB CONC 33.4 g/dL (32.0-36.0); Mean Corpuscular Hemoglobin 30.6 pg (27.0-31.0); Mean Corpuscular Volume 91.5 fL (78.0-98.0); Mean Platelet Volume 8.9 fL (7.4-10.4); Platelet Count 266 thou/uL (130-400); RBC Distribution Width 13.9 % (11.5-14.5); Red Blood Cell (RBC) Count 3.79 mill/uL (4.70-6.10); White Blood Cell (WBC) Count 21.4 thou/uL (4.8-10.8)
[2021-04-15 05:13] LABS: INR-International Normal Ratio 2.2; Prothrombin Time 24.5 sec (12.0-14.7)
[2021-04-15 05:46] LABS: ALT (SGPT) 121 U/L (8-55); AST (SGOT) 53 U/L (5-34); Albumin 3.4 g/dL (3.4-4.8); Alkaline Phosphatase 307 U/L (40-110); Anion Gap 17 mmol/L (10-20); BUN (Urea Nitrogen) 34 mg/dL (8.4-25.7); Bilirubin, Direct 0.3 mg/dL (0.1-0.3); Bilirubin, Total 0.7 mg/dL (0.2-1.2); Calc. Creatinine Clearance 60 mL/min (70-130); Carbon Dioxide 28 mmol/L (23-31); Chloride 100 mmol/L (98-107); Globulin 4.2 g/dL (2.4-3.5); Glucose 149 mg/dL (83-110); Magnesium 2.2 mg/dL (1.6-2.6); Potassium 3.8 mmol/L (3.5-5.1); Protein, Total 7.6 g/dL (5.8-8.1); Sodium 141 mmol/L (136-145)
[2021-04-15] MEDS: Furosemide 40 MG/4 ML VIAL SLOW IVP SCH (05:49)
[2021-04-15] MEDS ORDERED: Electrolyte Replacement Protocol 1 EACH FS SCH (06:30)
[2021-04-15] MEDS ORDERED: predniSONE 20 MG TAB PO SCH (08:00)
[2021-04-15] MEDS ORDERED: metroNIDAZOLE 500 MG in Premix Bag 1 BAG IVPB SCH (08:00)
[2021-04-15 08:49] VITALS: BP 111/96; TEMP 96.9
[2021-04-15] MEDS ORDERED: Potassium Chloride 20 MEQ TAB PO SCH (09:00)
[2021-04-15] MEDS: Apixaban 5 MG TAB PO SCH (09:54)
[2021-04-15] MEDS: Aspirin 81 mg Enteric Coated Tablet PO SCH (09:54)
[2021-04-15] MEDS: Megestrol Acetate 40 MG TAB PO SCH (09:54)
[2021-04-15] MEDS: Senokot S 8.6-50 MG TAB PO SCH (09:54)
[2021-04-15] MEDS: Famotidine 20 MG TAB PO SCH (10:29)
== END 2021-04-15 12:24 | DRG 871 ==
LOC: ERS 18:17 → OBSVTOIN 21:13 → 2NO 21:13 → IMCU/EMU 04-12 03:04 → 2SE 04-13 17:30
PROVIDERS: ADMIT Internal Medicine; ATTEND Family Medicine
PROC: 5A09457 Assistance with Respiratory Ventilation, 24-96 Consecutive Hours, Continuous Positive Airway Pressure (ICD-10-PCS; principal; 2021-04-12)
DX: A41.9 Sepsis, unspecified organism (principal); I21.A1 Myocardial infarction type 2; J18.9 Pneumonia, unspecified organism; I50.33 Acute on chronic diastolic (congestive) heart failure; G93.41 Metabolic encephalopathy; N17.9 Acute kidney failure, unspecified; C34.31 Malignant neoplasm of lower lobe, right bronchus or lung; I13.0 Hypertensive heart and chronic kidney disease with heart failure and stage 1 through stage 4 chronic kidney disease, or unspecified chronic kidney disease; R04.2 Hemoptysis; F03.91 Unspecified dementia, unspecified severity, with behavioral disturbance; K80.10 Calculus of gallbladder with chronic cholecystitis without obstruction; Z20.822 Contact with and (suspected) exposure to COVID-19; E78.5 Hyperlipidemia, unspecified; I48.0 Paroxysmal atrial fibrillation; I25.10 Atherosclerotic heart disease of native coronary artery without angina pectoris; G47.33 Obstructive sleep apnea (adult) (pediatric); E86.0 Dehydration; K82.8 Other specified diseases of gallbladder; F41.9 Anxiety disorder, unspecified; N18.9 Chronic kidney disease, unspecified; M79.81 Nontraumatic hematoma of soft tissue; Z79.01 Long term (current) use of anticoagulants; Z95.5 Presence of coronary angioplasty implant and graft; Z87.891 Personal history of nicotine dependence; Z79.899 Other long term (current) drug therapy; Z93.1 Gastrostomy status; I69.920 Aphasia following unspecified cerebrovascular disease; Z95.1 Presence of aortocoronary bypass graft; Z95.4 Presence of other heart-valve replacement; Z82.49 Family history of ischemic heart disease and other diseases of the circulatory system; Z80.8 Family history of malignant neoplasm of other organs or systems; F32.9 Major depressive disorder, single episode, unspecified
CPT/HCPCS: 36415; 36416; 36600; 70450; 71045; 76705; 78227; 80048; 80053; 80076; 81003; 81015; 82140; 82553; 82565; 82805; 83605; 83735; 83880; 84443; 84484; 85014; 85018; 85025; 85049; 85610; 85730; 86850; 86900; 86901; 87040; 87070; 87086; 87205; 93005; 93010; 94640; 94660; 96365; 96372; 96375; A9537; G0378; J0696; J1630; J1650; J1940; J2060; J2405; J2543; J2920; J3370; J3475; J3490; J7512; J7620; S0179; U0002; U0005

== ENCOUNTER 2021-04-18 08:19 | Emergency (ER) | payer OTHER ==
[2021-04-18 09:36] LABS: Hemoglobin 11.3 g/dL (14.0-18.0); Mean Corpuscular HGB CONC 33.3 g/dL (32.0-36.0); Mean Corpuscular Hemoglobin 30.5 pg (27.0-31.0); Mean Corpuscular Volume 91.5 fL (78.0-98.0); Mean Platelet Volume 8.6 fL (7.4-10.4); Platelet Count 176 thou/uL (130-400); RBC Distribution Width 14.6 % (11.5-14.5); Red Blood Cell (RBC) Count 3.72 mill/uL (4.70-6.10); White Blood Cell (WBC) Count 24.6 thou/uL (4.8-10.8)
[2021-04-18 09:59] LABS: ALT (SGPT) 73 U/L (8-55); AST (SGOT) 42 U/L (5-34); Albumin 3.2 g/dL (3.4-4.8); Alkaline Phosphatase 209 U/L (40-110); Anion Gap 14 mmol/L (10-20); BUN (Urea Nitrogen) 41 mg/dL (8.4-25.7); Bilirubin, Total 0.9 mg/dL (0.2-1.2); Calc. Creatinine Clearance 0 mL/min (70-130); Calcium 8.8 mg/dL (7.8-10.44); Carbon Dioxide 25 mmol/L (23-31); Chloride 102 mmol/L (98-107); Globulin 3.3 g/dL (2.4-3.5); Glucose 192 mg/dL (83-110); Potassium 4.4 mmol/L (3.5-5.1); Protein, Total 6.5 g/dL (5.8-8.1); Sodium 137 mmol/L (136-145)
[2021-04-18 10:13] LABS: Band 2 % (5-11); Lymphocytes 10 % (21-51); MDiff Complete? YES; Monocytes 3 % (0-10); Neutrophil 85 % (42-75); Platelet Morphology Comment Appears Adequate; Polychromasia SLIGHT = 2-3 cells (100X) (0-2/hpf)
[2021-04-18 10:23] LABS: CKMB 1.6 ng/mL (0-6.6)
== END 2021-04-18 11:39 | disposition home or self-care (01) ==
LOC: ERS 08:19
DX: R06.00 Dyspnea, unspecified (principal); C34.90 Malignant neoplasm of unspecified part of unspecified bronchus or lung; B37.0 Candidal stomatitis; Z79.899 Other long term (current) drug therapy; Z79.891 Long term (current) use of opiate analgesic; Z79.82 Long term (current) use of aspirin; I25.10 Atherosclerotic heart disease of native coronary artery without angina pectoris; I50.9 Heart failure, unspecified; I48.91 Unspecified atrial fibrillation; E78.5 Hyperlipidemia, unspecified; G47.30 Sleep apnea, unspecified; I13.0 Hypertensive heart and chronic kidney disease with heart failure and stage 1 through stage 4 chronic kidney disease, or unspecified chronic kidney disease; N18.9 Chronic kidney disease, unspecified
CPT/HCPCS: 36415; 71045; 80053; 82553; 84484; 85025; 93005